=== PATIENT | female | born 1965 | race Caucasian/White ===

== ENCOUNTER 2017-07-07 14:33 | Emergency (ER) | payer OTHER ==
[~2017-07-07] VITALS: Ht 157.5 cm; Wt 61.2 kg
[~2017-07-07 14:33] MED LIST: LABETALOL HCL100 MG PO
[2017-07-07] MEDS ORDERED: LOSARTAN POTASS25 MG (14:42)
== END 2017-07-07 19:45 | disposition home or self-care (01) ==
LOC: ER 14:33
DX: M54.5 Low back pain (principal)